=== PATIENT | male | born 1975 | race Caucasian/White ===

== ENCOUNTER 2018-06-29 07:46 | Emergency (ER) | payer SELFPAY ==
[~2018-06-29] VITALS: Ht 170.2 cm; Wt 90.9 kg
[~2018-06-29 07:46] MED LIST: GENTAMICIN EYE D5 ML OP; NO HOME MEDICATIONS
[2018-06-29 07:53] VITALS: BP 128/73; TEMP 97.8
[2018-06-29] MEDS ORDERED: ONE DAILY1 TA1 PO (08:41)
[2018-06-29] MEDS ORDERED: OSTEO-BI-FLEX 21 TAB PO (08:41)
[2018-06-29] MEDS ORDERED: FLEXERIL 1010 MG/TAB PO (09:12)
[2018-06-29 09:32] VITALS: PULSE 68
== END 2018-06-29 09:31 | disposition home or self-care (01) ==
LOC: COL.ER 07:46
DX: M54.2 Cervicalgia (principal); F17.210 Nicotine dependence, cigarettes, uncomplicated
CPT/HCPCS: J1885